=== PATIENT | male | born 1945 | race Caucasian/White ===

== ENCOUNTER → 2017-10-27 | Outpatient (CLI) | payer MEDICARE | END | disposition home or self-care (01) | LOC: PCVCCLINIC 15:26 | DX: I25.119 Atherosclerotic heart disease of native coronary artery with unspecified angina pectoris (principal); I73.9 Peripheral vascular disease, unspecified; I10 Essential (primary) hypertension; E78.5 Hyperlipidemia, unspecified; F17.210 Nicotine dependence, cigarettes, uncomplicated; Z79.899 Other long term (current) drug therapy | CPT/HCPCS: 93005; G0463 ==

== ENCOUNTER → 2017-12-23 | Outpatient (CLI) | payer MEDICARE | END | disposition home or self-care (01) | LOC: PCVCCLINIC 12:34 | DX: I73.9 Peripheral vascular disease, unspecified (principal); I74.5 Embolism and thrombosis of iliac artery; I10 Essential (primary) hypertension; I25.119 Atherosclerotic heart disease of native coronary artery with unspecified angina pectoris; I77.9 Disorder of arteries and arterioles, unspecified; E78.00 Pure hypercholesterolemia, unspecified; C20 Malignant neoplasm of rectum; F17.201 Nicotine dependence, unspecified, in remission | CPT/HCPCS: 80061; 93005; G0463 ==

== ENCOUNTER → 2017-12-30 | Outpatient (CLI) | payer MEDICARE ==
[~2017-12-30] MED LIST: DIAZEPAM 10 MG TABLET. ONE; HEPARIN SODIUM 5,000 UNIT/ML VIAL for PCVC. ONE; IV NORMAL SALINE 500ML BAG 0 ML ONE; MIDAZOLAM HCL/PF 2 MG/2 ML VIAL. ONE; WATER FOR INJECTION,STERILE 20 ML VIAL. IJ ONE; ceFAZolin SODIUM 1 GM VIAL ONE; fentaNYL PF VIAL 100 MCG/2 ML VIAL ONE; hydrALAZINE 20 MG/ML VIAL. ONE
--- NOTE | 2017-12-30 11:13 | PCVCINTER ---
EXAM: 1. RIGHT LOWER EXTREMITY RUNOFF ANGIOGRAM 2. LEFT COMMON ILIAC ARTERY STENT PLACEMENT. 3. LEFT EXTERNAL ILIAC ARTERY STENT PLACEMENT. 4. LEFT SUPERFICIAL FEMORAL ARTERY ATHERECTOMY AND STENT PLACEMENT. 5. SECONDARY THROMBECTOMY LEFT SUPERFICIAL FEMORAL ARTERY. INDICATION: Peripheral arterial disease. Coronary artery disease. Lower extremity pain. Hypertension. Renal atherosclerosis. No prior catheter based angiographic study is available. A full diagnostic angiogram study is performed today and the decision to intervene is based on this diagnostic study. PROCEDURE: Procedure and risks of angiography intervention is appropriate including limb loss stroke and were discussed with the patient's family and consent obtained. The patient's right groin was prepped in the normal sterile fashion. IV conscious sedation was used throughout procedure with appropriate monitoring from 9:00 AM through 10:30 AM. Ultrasound was used to interrogate the right groin and showed the right common femoral artery to be patent. A permanent spot film was obtained. Under ultrasound guidance access into the right common femoral artery was obtained and a 5 Chadian sheath was placed. Through this a 6 Chadian crossover sheath was placed via the right groin to the level of the left common femoral artery. Atherectomy of the left superficial femoral artery was performed with 2.0 mm goBramble laser atherectomy catheter in the standard fashion. Following atherectomy small areas of thrombus were observed and because of this secondary thrombectomy throughout the left superficial femoral artery was carried out with mechanical suction thrombectomy catheter in the standard fashion. Minimal debris was removed. Stent placement across the areas of high-grade stenosis in the left superficial femoral artery was carried out with a 6 x 100 Smart control stent with subsequent dilatation to 5.0 mm. Stent placement across the areas of high-grade stenosis in the left external iliac artery was carried out with a 8 x 80 Smart control stent with subsequent dilatation to 6.0 mm. Stent placement across the areas of high-grade stenosis in the left common iliac artery was carried out with a 10 x 60 Smart control stent with subsequent dilatation to 8.[address] Valdivia joined the procedure and he performed coronary angiography. Please see his note for full dictation. Follow-up angiogram was performed. Catheters and wires removed. Sheath was removed and hemostasis obtained using the FISH device. No immediate complications. FINDINGS: Right leg: Superficial femoral artery shows good patency throughout including prior stent distally. Mild stenosis upper [place] popliteal artery. Area of previous occlusion lower popliteal artery and tibioperoneal trunk maintaining adequate patency. 50% restenosis [place] lower popliteal artery and 40% restenosis of the proximal tibioperoneal trunk. The anterior and posterior tibial arteries are occluded in the mid and upper portion. The peroneal artery is widely patent and refills the distal anterior and posterior tibial arteries to runoff into moderate-sized plantar arteries and dorsalis pedis. Left common iliac artery: Following procedure as above vessel shows good patency. Left external iliac artery: Following procedure as above vessel shows good patency. Left superficial femoral artery: Following procedure as above vessel shows good patency. IMPRESSION: Areas of significant stenosis left common and external iliac arteries and proximal left superficial femoral artery were treated as above with good patency restored. Previous area intervention for occlusion of the lower right popliteal artery and tibioperoneal trunk maintaining reasonable patency with 50% restenosis lower popliteal artery and 40% restenosis proximal right tibial peroneal trunk. LOC:[id number]
--- NOTE | 2017-12-30 12:44 | PCVCIMAG ---
APPROVED REPORT Laterality: Bilateral Indications Stenosis Doppler Spectral Velocity Analysis PSV / EDVPSV / EDV ECA (R) 114 / 10 cm/sECA (L) 267 / 8 cm/s dICA (R) 114 / 29 cm/sdICA (L) 91 / 16 cm/s Cami (R) 210 / 59 cm/smICA (L) 133 / 23 cm/s pICA (R) 203 / 61 cm/spICA (L) 205 / 49 cm/s Bulb (R) 80 / 19 cm/sBulb (L) 71 / 10 cm/s dCCA (R) 71 / 16 cm/sdCCA (L) 72 / 7 cm/s mCCA (R) 90 / 16 cm/smCCA (L) 102 / 16 cm/s pCCA (R) pCCA (L) 115 / 14 cm/s Vert (R) 69 / 19 cm/sVert (L) 59 / 14 cm/s ICA/CCA 2.96 ICA/CCA 2.85 Findings The right carotid bulb has moderately severe calcified plaque. The right proximal internal carotid artery shows 60-70% stenosis. The right common carotid artery shows no significant stenosis. The right external carotid artery shows no significant stenosis. The left carotid bulb has moderately severe plaque. The left proximal internal carotid artery shows 60-70% stenosis. The left common carotid artery shows <40% stenosis. The left external carotid artery shows >50% stenosis. Conclusion 1. Right internal carotid artery stenosis (60-70%) 2. Left common carotid artery stenosis (<40%) 3. Left internal carotid artery stenosis (60-70%) 4. Antegrade vertebral flow
--- NOTE | 2017-12-30 16:37 | PCVCIMAG ---
APPROVED REPORT Study performed: 12/30/2017 12:32:11 EXAM: Comprehensive 2D, Doppler, and color-flow Echocardiogram Patient Location: [facility]- recovery Room #: 2Status: routine BSA: 1.98 HR: 62 bpmBP: 164/70 mmHg Rhythm: NSR Other Information Study Quality: Adequate Risk Factors: Cardiac Risk Factors: Hyperlipidemia, HTN, tobacco Indications CAD Hypertension/HDD PAD 2D Dimensions LVEF(%): 54.49 (>50%) IVSd: 9.53 (7-11mm)LVOT Diam: 21.07 (18-24mm) LVDd: 49.44 mm PWd: 11.22 (7-11mm)Ascending Ao: 34.41 (22-36mm) LVDs: 35.44 (25-40mm) Left Atrium: 30.62 (27-40mm) Aortic Root: 28.59 mm LV Single Plane 4CH: 55.88 % LV Single Plane 2CH: 61.07 %Gross's LVEF: 58.47 % Biplane EF: 58.5 % Volumes Left Atrial Volume (Systole) Single Plane 4CH: 58.39 mLSingle Plane 2CH: 51.43 mL Biplane LA Volume: 55.00 mLLA ESV Index: 28.00 mL/m2 Aortic Valve AoV Peak Colin.: 1.60 m/s AO Peak Gr.: 10.28 mmHgLVOT Max P.74 mmHg LVOT Max V: 1.09 m/s JAYCOB Vmax: 2.36 cm2 Mitral Valve E/A Ratio: 1.0 MV Decel. Time: 267.05 ms MV E Max Colin.: 0.85 m/s MV A Colin.: 0.82 m/s IVRT: 110.73 ms TDI E/Lateral E': 10.63E/Medial E': 12.14 Medial E' Colin.: 0.07 m/s Lateral E' Colin.: 0.08 m/s Pulmonary Valve PV Peak Colin.: 0.99 m/sPV Peak Gr.: 3.92 mmHg Pulmonary Vein P Vein S: 0.66 m/sP Vein A: 0.32 m/s P Vein D: 0.44 m/sP Vein A Dur.: 90.0 msec P Vein S/D Ratio: 1.50 Tricuspid Valve TR Peak Colin.: 1.53 m/s TR Peak Gr.: 9.31 mmHg TV Vmax: 0.67 m/sPA Pressure: 16.00 mmHg Left Ventricle The left ventricle is normal size. There is normal LV segmental wall motion. There is normal left ventricular wall thickness. Left ventricular systolic function is normal. The left ventricular ejection fraction is within the normal range. LVEF is 55-60%. The left ventricular diastolic function is normal. Right Ventricle The right ventricle is normal size. The right ventricular systolic function is normal. Atria The left atrium size is normal. The right atrium size is normal. Aortic Valve The aortic valve is trileaflet, mildly sclerotic No aortic regurgitation is present. There is no aortic valvular stenosis. Mitral Valve The mitral valve is normal in structure. There is no mitral valve regurgitation noted. No evidence of mitral valve stenosis. Tricuspid Valve The tricuspid valve is normal in structure. There is trace tricuspid valve regurgitation noted with a PA pressure of 16 mmHg Pulmonic Valve The pulmonary valve is normal in structure. There is no pulmonic valvular regurgitation. Great Vessels The aortic root is normal in size. The ascending aorta is normal in size. Aortic arch is not well visualized. IVC is normal in size and collapses with >50% inspiration Pericardium There is no pericardial effusion. There is no pleural effusion. <Conclusion> Left ventricular systolic function is normal. There is normal LV segmental wall motion. LVEF 55-60%. The aortic valve is trileaflet, mildly sclerotic. No aortic regurgitation or stenosis The mitral valve is normal in structure. No mitral valve regurgitation There is trace tricuspid valve regurgitation noted with a PA pressure of 16 mmHg There is no pericardial effusion.
--- NOTE | 2017-12-30 16:51 | PCVCINTER ---
APPROVED REPORT Study performed: 12/30/2017 09:25:51 Patient Details Patient Status: Out-Patient Room #: 2 The patient is a 72 year-old Male Event Personnel Osmany Steele RT(R), Jose Maria Badillo RT(R)(), Lyndsey Chapman RN Risk Factors Arterial HypertensionDysplipidemia (Type: 1), Peripheral Vascular Disease, Hypercholesterolemia, Last Creatanine 1.3Tobacco History (Current/Recent(w/in 1 year)) Previous Procedures/Diagnoses Previous Femoral Procedure Procedure Narrative A 6 sheath was inserted into the right femoral artery. Coronary angiography was performed using coronary diagnostic catheters. The right coronary system was accessed and visualized with a JR4 catheter. The left coronary system was accessed and visualized with a JL4 catheter. The left ventricle was accessed and visualized with a Angled Pigtail catheter. Left ventricular/Aortic Valve gradient assessed via catheter pullback. Left ventriculogram was performed in JONAS projection. Closure device was deployed with a 6 Fr FISH. Hemostasis was obtained with manual pressure following sheath removal without any complications. The patient tolerated the procedure well and there were no complications associated with the procedure. There was no hematoma. Coronary Angiography The patient's coronary anatomy is right dominant. Diagnostic Cath Left MainNormal left main LADMild proximal LAD plaquing and calcification. The mid LAD exhibited an 85% stenosis, followed shortly thereafter by 75% stenosis. Minimal distal plaquing Diagonal 1Small mid-vessel arising, bifurcating diagonal branch with moderate proximal plaquing (50%) [id number]% proximal circumflex prior to the origin of a single, large bifurcating marginal branch [id number] portion of the first marginal branch exhibited an 80% stenosis. The vessel bifurcated just after the stenosis with the superior limb bifurcation exhibiting an 85% ostial stenosis Right CoronaryThe right coronary was dominant with a tubular and fairly long 60% R PDAThe posterior descending was occluded with faint right to right collateralization to the distal portion of the vessel. RPLVPosterolateral branch was moderately large with a proximal 50-60% stenosis. Left Ventriculography The left ventricle is normal in size with normal contractility. The left ventricular ejection fraction is estimated to be 60-65%. Left ventricular wall motion abnormalities are not present. There is no mitral insufficiency. Hemodynamics The aortic pressure is 154/50 mmHg with a mean of 87 mmHg. The left ventricular pressure is 131/4 mmHg with a mean of 15 mmHg. Conclusion 1. Normal global and regional left ventricular systolic function. EF 65% 2. Normal left main 3. Severe mid LAD disease 4. Complex disease involving the first marginal branch at its initial bifurcation 5. Moderate 50-60% mid right coronary stenosis. Occluded posterior descending branch. Recommendations Smoking Cessation Aggressive Medical Therapy 1. Staged intervention to mid LAD and marginal branches.
== END | disposition home or self-care (01) ==
LOC: PCVCINTER 13:14
PROVIDERS: ATTEND Internal Medicine
DX: I25.10 Atherosclerotic heart disease of native coronary artery without angina pectoris (principal); I70.1 Atherosclerosis of renal artery; I65.23 Occlusion and stenosis of bilateral carotid arteries; I70.213 Atherosclerosis of native arteries of extremities with intermittent claudication, bilateral legs; I10 Essential (primary) hypertension; E78.00 Pure hypercholesterolemia, unspecified; F17.200 Nicotine dependence, unspecified, uncomplicated; I74.3 Embolism and thrombosis of arteries of the lower extremities
CPT/HCPCS: 37186; 37221; 37223; 37227; 76937; 93306; 93458; 93880; 99152; 99153; C1725; C1751; C1757; C1760; C1769; C1876; C1885; C1894; 75716; J0360; J0690; J1644; J2250; J3010; J7040

== ENCOUNTER → 2018-04-16 | Outpatient (CLI) | payer MEDICARE | END | disposition home or self-care (01) | LOC: PCVCCLINIC 13:18 | PROVIDERS: ATTEND Internal Medicine | DX: I25.10 Atherosclerotic heart disease of native coronary artery without angina pectoris (principal); I10 Essential (primary) hypertension; I73.9 Peripheral vascular disease, unspecified; I65.23 Occlusion and stenosis of bilateral carotid arteries; E78.5 Hyperlipidemia, unspecified; M19.90 Unspecified osteoarthritis, unspecified site; F17.200 Nicotine dependence, unspecified, uncomplicated; Z79.82 Long term (current) use of aspirin | CPT/HCPCS: 80061; 93005; G0463 ==

== ENCOUNTER → 2018-04-20 | Outpatient (CLI) | payer MEDICARE ==
--- NOTE | 2018-04-20 12:14 | PCVCIMAG ---
EXAM: AORTOILIAC DUPLEX INDICATION: Peripheral arterial disease FINDINGS: AORTA: Suprarenal aorta measures maximum diameter of 2.8 cm. There is not a fusiform infrarenal aortic aneurysm. The infrarenal aorta measures maximum diameter of 2.2 cm. No aortic stenosis. RIGHT COMMON ILIAC ARTERY: Maximum diameter is 1.0 cm. No significant stenosis. RIGHT EXTERNAL ILIAC ARTERY: No significant stenosis. LEFT COMMON ILIAC ARTERY: Maximum diameter is 1.2 cm. No significant stenosis. LEFT EXTERNAL ILIAC ARTERY: 60% restenosis distal vessel within prior stent. IMPRESSION: No abdominal aortic aneurysm. Previous right iliac stents maintaining good patency. Previous left common iliac artery stent maintaining good patency. 60% restenosis distal left external iliac artery within prior stent. LOC:[id number]
--- NOTE | 2018-04-20 12:20 | PCVCIMAG ---
EXAM: BILATERAL LOWER EXTREMITY ARTERIAL DUPLEX INDICATION: Peripheral Arterial Disease. Leg pain. FINDINGS: Right Leg: Common femoral and profunda femoral arteries are patent. Mild stenosis proximal [place] de[place]' superficial femoral artery. Previous stent/distal superficial femoral artery maintaining good patency. Popliteal artery remains patent including previous site of intervention distally. Tibioperoneal trunk showing adequate patency as does the peroneal artery. Anterior and posterior tibial arteries are occluded as seen previously. Left Leg: Moderate stenosis common femoral artery. Profunda femoral artery is patent. Previous stent proximal superficial femoral artery maintaining satisfactory patency. 60% stenosis mid [place]low[place] dee-ni' superficial femoral artery. Popliteal artery is patent. The anterior tibial artery is occluded as seen previously. The peroneal artery and posterior tibial artery are patent. IMPRESSION: Previous right superficial femoral artery stent maintaining satisfactory patency. Unchanged occlusion of the right anterior and posterior tibial arteries. Previous stent proximal left superficial femoral artery maintaining satisfactory patency. 60% stenosis mid tolowa dee-ni' left superficial femoral artery. Unchanged occlusion left anterior tibial artery. LOC:[place] [id number]
== END | disposition home or self-care (01) ==
LOC: PCVCIMAG 10:51
PROVIDERS: ATTEND Nuclear Medicine Nuclear Cardiology
DX: I73.9 Peripheral vascular disease, unspecified (principal); E78.00 Pure hypercholesterolemia, unspecified; E78.5 Hyperlipidemia, unspecified; I77.9 Disorder of arteries and arterioles, unspecified; I25.119 Atherosclerotic heart disease of native coronary artery with unspecified angina pectoris; I10 Essential (primary) hypertension; C20 Malignant neoplasm of rectum; F17.210 Nicotine dependence, cigarettes, uncomplicated; Z79.82 Long term (current) use of aspirin
CPT/HCPCS: 93925; 93978; G0463